=== PATIENT | male | born 1975 | race Caucasian/White ===

== ENCOUNTER 2017-12-09 13:11 | Emergency (ER) | payer OTHER ==
[~2017-12-09] VITALS: Ht 193 cm; Wt 107.5 kg
--- NOTE | 2017-12-09 15:01 | NUR ---
Patient discharged to home in stable conditon. Written and verbal after care instructions given. Patient verbalizes understanding of instructions.
[2017-12-09 15:02] VITALS: BP 135/75
== END 2017-12-09 15:04 | disposition home or self-care (01) ==
LOC: ER 13:11
DX: S06.0X0A Concussion without loss of consciousness, initial encounter (principal); V49.49XA Driver injured in collision with other motor vehicles in traffic accident, initial encounter; Y93.89 Activity, other specified; Y92.410 Unspecified street and highway as the place of occurrence of the external cause; Y99.8 Other external cause status
CPT/HCPCS: A4663